=== PATIENT | male | born 1970 | race Caucasian/White ===

== ENCOUNTER → 2023-01-03 02:28 | Outpatient (CLI) | payer MEDICAID, SELFPAY ==
--- NOTE | 2023-01-03 | DI.MRI_ITS ---
Exam(s) MR THORACIC SPINE WO EXAM: MR THORACIC SPINE WO CLINICAL HISTORY: PARESTHESIA,PAIN BOTH UPPER EXT,R20.2,NUMBNESS RT LEG,R20.0,URINARY URGENCY. TECHNIQUE: Multiplanar multisequence MRI of the Thoracic spine was performed. CONTRAST MATERIAL: Noncontrast COMPARISON: No exams were available for comparison FINDINGS: Bones: Mild anterior wedging of the T6, T7 and T8 vertebral bodies, consistent with chronic deformiti es. Small endplate osteophytes projecting anteriorly. Alignment is satisfactory. The signal charact eristics are unremarkable. Cord: The thoracic cord is normal size and signal intensity. No intrinsic cord lesion is present. Discs: No disc herniation or bulge is present. Soft tissues: Normal. IMPRESSION: Mild old compression fractures midthoracic spine. No central canal stenosis, foraminal stenosis or o f disc herniation. Cord appears normal. DATA REPOSITORY:
--- NOTE | 2023-01-03 | DI.MRI_ITS ---
Exam(s) MR LUMBAR SPINE WO EXAM: MR LUMBAR SPINE WO CLINICAL HISTORY: LUMBAR RADICULOPATHY,M54.17,PERIPHERAL NEUROPATHY,G62.9,NUMBNESS RT LEG,R20. TECHNIQUE: Multiplanar multisequence MRI of the Lumbar spine was performed. COMPARISON: CR XR C SPINE 3 VWS or Less from 04/26/2022 FINDINGS: Bones: The last intervertebral disc space is designated the L5/S1 level for the numbering purpose of this ex amination. The vertebral body heights are well maintained. Alignment: Unremarkable. The marrow signal characteristics are unremarkable. Cord: The conus tip ends at the T12 level. It is of normal size and signal intensity. T12-L1: No focal disc herniation is present. No central spinal canal stenosis.No neural foraminal st enosis. L1-2: No focal disc herniation is present. No central spinal canal stenosis.No neural foraminal sten osis. L2-3: No focal disc herniation is present. No central spinal canal stenosis.No neural foraminal ck nosis. L3-4: No focal disc herniation is present. No central spinal canal stenosis.No neural foraminal ck nosis. L4-5: No focal disc herniation is present. No central spinal canal stenosis.No neural foraminal sten osis. L5-S1: At loss of disc height.Partial disc desiccation. Small right paracentral disc protrusion whic h may mildly impinge on nerve roots. No central spinal canal stenosis.No neural foraminal stenosis. The visualized SI joints and sacrum are well maintained. Soft tissues: The paraspinal soft tissues are unremarkable. IMPRESSION: Small right paracentral disc protrusion at L5-S1. No evidence of significant spinal stenosis or neuroforaminal narrowing level. DATA REPOSITORY:
== END ==
PROVIDERS: PCP Registered Nurse; Visit Provider Psychiatry & Neurology Neurology
DX: R20.2 Paresthesia of skin (principal); G56.03 Carpal tunnel syndrome, bilateral upper limbs; M54.17 Radiculopathy, lumbosacral region
CPT/HCPCS: 72146; 72148

== ENCOUNTER 2023-04-03 10:46 | Outpatient (CLI) | payer MEDICAID, SELFPAY ==
[2023-04-03 11:16] VITALS: BP 129/82; PULSE 88; RESP 20; TEMP 36.5; O2SAT 97
--- NOTE | 2023-04-03 12:10 | DI.RAD_ITS ---
Exam(s) XR PAIN CLINIC CERVICAL SP 2V EXAM: XR PAIN CLINIC CERVICAL SP 2V CLINICAL HISTORY: DX: Cervical spondylosis. TECHNIQUE: Fluoroscopy was provided for the referring physician for guidance with performing pain cl inic injection procedure. COMPARISON: No exams were available for comparison FINDINGS: Please see procedure note for details. Fluoro time: 36.6 seconds RADIATION DOSE DELIVERED: marion Castano=3.79 mGy
[2023-04-03 12:11] VITALS: BP 115/83; PULSE 78; RESP 15; O2SAT 95
[2023-04-03] MEDS: Nerve Block Tray 1 EACH MC (12:13)
[2023-04-03] MEDS: Bupivacaine 0.5% Pres-Free 10 ML VIAL IJ (12:14)
[2023-04-03] MEDS: Omnipaque 240 MG/ML 50 ML BTL IJ (12:14)
--- NOTE | 2023-04-03 12:46 | PDOC.PAIN ---
Date of service: 04/03/23 Time of Service: 12:46 Pain Managment Procedure Note Procedure Note Procedure Note: PROCEDURE NOTE RIGHT SIDED CERVICAL MEDIAL BRANCH BLOCKS Date of Service: April 03, 2023 Patient: Zhao Stack Provider: Delfino Christine DO, MPH Zhao Stack has been [facility] to [facility] for cervical medial branch blocks. Pre-operative diagnosis: Cervical Spondylosis without Myelopathy Post-operative diagnosis: Same Pre-procedure pain: VAS= 9/10 COMMENTS: I previously evaluated him in the office. His symptoms remain the same. Zhao? was interviewed and the medical records were reviewed. There were no medical, pharmacologic, radiographic or other structural contraindications to attempting fluoroscopically guided local anesthetic cervical medial branch blocks. Risks and potential side effects were discussed. I also discussed the potential benefit(s) of the procedure with Zhao, and voiced concerns were addressed. After Zhao was completely informed about the procedure, the printed consent form was signed. A standard time-out procedure was performed. Zhao was placed in the lateral decubitus position on the fluoroscopy table with the effected side up. Automated blood pressure cuff and pulse oximeter were applied. The skin entry points for approaching the anatomic target points of the segmental medial branches of Right C3,C4,C5 and C6 were identified with fluoroscopy and marked. The skin at the target site area was thoroughly prepared with Chlorhexadine. The skin was then draped. Next, a 25 gauge 3.5 spinal needle was placed under fluoroscopic guidance down on to the target point (the articular pillar) for each respective segmental medial branch. Position was confirmed in A/P and lateral views. Aspiration revealed no blood or clear fluid. Next, 0.25ml of omnipaque 240 was injected at each level. No contrast following a vascular or neural pattern was visualized under continuous fluoroscopy. Next, 0.25 ml of preservative-free 0.5% bupivicaine was injected at each level. (49 mls of Omnipaque was wasted) There was no unusual discomfort expressed by Zhao. The needles were withdrawn without difficulty. Zhao was observed and was without hemodynamic, neurologic, or allergic reactions.? Fluoroscopic images were digitally archived. Zhao's vital signs were stable throughout the procedure and were as recorded in the doc flowsheet by the nursing staff. Provacative testing using the Modified Oneill's facet loading test- Right side Directly before the block VAS (0-10) = 9/10 5 minutes after the block VAS (0-10) = 0/10 Percentage relief obtained with this diagnostic block 100% Any improved physical functioning directly after the blocks? Able to move his neck in all directions with no pain Follow up plans and appointments were discussed with Zhao. Zhao was instructed to keep careful note of how the usual pain was modified by these injections. Specifically, to keep a pain diary for the next 4 hours using a numeric pain scale of 0-10 and report these results. Post procedure instruction was given as documented in the nursing documentation and having met discharge criteria, the patient was [facility]. Based on the medial branches blocked today, if Zhao has adequate relief and we are able to proceed to radiofrequency ablation, the treatment should result in the denervation of the Right C3-C4, C4-C5, and C5-C6 facet joints. We would expect to denervate a total of 3 facets during the radiofrequency ablation. COMMENTS: No apparent complications. Post-procedure pain: VAS= 0/10. Zhao will call back with 0-4 hour post-procedure pain scores. I personally performed the entire procedure. DELFINO CHRISTINE DO, MPH ABPM&R-subspecialty board certification in Pain Medicine [facility] [facility]
== END 2023-04-03 10:47 | disposition home or self-care (01) ==
LOC: PC 10:47
PROVIDERS: PCP Registered Nurse; Visit Provider Preventive Medicine Occupational Medicine
DX: M47.812 Spondylosis without myelopathy or radiculopathy, cervical region (principal)
CPT/HCPCS: 00123; 64490; 64491; 64492; 72040; J0665; Q9967

== ENCOUNTER 2023-04-24 12:22 | Outpatient (CLI) | payer MEDICAID, SELFPAY ==
--- NOTE | 2023-04-24 06:00 | DI.RAD_ITS ---
Exam(s) XR PAIN CLINIC CERVICAL SP 2V EXAM: XR PAIN CLINIC CERVICAL SP 2V CLINICAL HISTORY: Dx: Cervical Spondylosis TECHNIQUE: 2D and realtime digital imaging was performed. CONTRAST MATERIAL: Refer to procedure report. COMPARISON: No exams were available for comparison FINDINGS: Fluoroscopy was provided for Dr. Christine during the performance of a cervical medial branch block. Ple ase refer to the procedure report for complete details. Ka,r=4.72 mGy IMPRESSION: RADIATION DOSE DELIVERED: 0.0 0.0 0
[2023-04-24 12:32] VITALS: BP 127/93; PULSE 74; RESP 16; TEMP 36.9; O2SAT 96
--- NOTE | 2023-04-24 12:59 | PDOC.PAIN ---
Date of service: 04/24/23 Time of Service: 12:59 Pain Managment Procedure Note Procedure Note Procedure Note: PROCEDURE NOTE RIGHT SIDED CERVICAL MEDIAL BRANCH BLOCKS Date of Service: April 24, 2023 Patient: Zhao Stack Provider: Delfino Christine DO, MPH Zhao Stack has been referred to the [facility] for cervical medial branch blocks. Pre-operative diagnosis: Cervical Spondylosis without Myelopathy Post-operative diagnosis: Same Pre-procedure pain: VAS= 7/10 COMMENTS: He did very well with his CMBBs from 04/03/23 at the right C3-C6 Zhao? was interviewed and the medical records were reviewed. There were no medical, pharmacologic, radiographic or other structural contraindications to attempting fluoroscopically guided local anesthetic cervical medial branch blocks. Risks and potential side effects were discussed. I also discussed the potential benefit(s) of the procedure with Zhao, and voiced concerns were addressed. After Zhao was completely informed about the procedure, the printed consent form was signed. A standard time-out procedure was performed. Zhao was placed in the lateral decubitus position on the fluoroscopy table with the effected side up. Automated blood pressure cuff and pulse oximeter were applied. The skin entry points for approaching the anatomic target points of the segmental medial branches of Right C3,C4,C5 and C6 were identified with fluoroscopy and marked. The skin at the target site area was thoroughly prepared with Chlorhexadine. The skin was then draped. Next, a 25 gauge 3.5 spinal needle was placed under fluoroscopic guidance down on to the target point (the articular pillar) for each respective segmental medial branch. Position was confirmed in A/P and lateral views. Aspiration revealed no blood or clear fluid. Next, 0.25ml of omnipaque 240 was injected at each level. No contrast following a vascular or neural pattern was visualized under continuous fluoroscopy. Next, 0.25 ml of preservative-free 0.5% bupivicaine was injected at each level. (49 mls of Omnipaque was wasted) There was no unusual discomfort expressed by Zhao. The needles were withdrawn without difficulty. Zhao was observed and was without hemodynamic, neurologic, or allergic reactions.? Fluoroscopic images were digitally archived. Zhao's vital signs were stable throughout the procedure and were as recorded in the doc flowsheet by the nursing staff. Provacative testing using the Modified Oneill's facet loading test- Right side Directly before the block VAS (0-10) = 7/10 5 minutes after the block VAS (0-10) = 1/10 Percentage relief obtained with this diagnostic block 90% Any improved physical functioning directly after the blocks? Able to move the neck with little difficulty Follow up plans and appointments were discussed with Zhao. Zhao was instructed to keep careful note of how the usual pain was modified by these injections. Specifically, to keep a pain diary for the next 4 hours using a numeric pain scale of 0-10 and report these results. Post procedure instruction was given as documented in the nursing documentation and having met discharge criteria, the patient was [facility] from the [facility]. Based on the medial branches blocked today, if Zhao has adequate relief and we are able to proceed to radiofrequency ablation, the treatment should result in the denervation of the Right C3-C4, C4-C5, and C5-C6 facet joints. We would expect to denervate a total of 3 facets during the radiofrequency ablation. COMMENTS: No apparent complications. Post-procedure pain: VAS= 1/10. Zhao will call back with 0-4 hour post-procedure pain scores. I personally performed the entire procedure. DELFINO CHRISTINE DO, MPH ABPM&R-subspecialty board certification in Pain Medicine [facility] [facility]
[2023-04-24 13:21] VITALS: BP 111/70; PULSE 67; RESP 15; O2SAT 95
[2023-04-24] MEDS: Nerve Block Tray 1 EACH MC (13:23)
[2023-04-24] MEDS: Bupivacaine 0.5% Pres-Free 10 ML VIAL IJ (13:23)
[2023-04-24] MEDS: Omnipaque 240 MG/ML 50 ML BTL IJ (13:24)
== END 2023-04-24 12:23 | disposition home or self-care (01) ==
LOC: PC 12:23
PROVIDERS: PCP Registered Nurse; Visit Provider Preventive Medicine Occupational Medicine
DX: M47.812 Spondylosis without myelopathy or radiculopathy, cervical region (principal)
CPT/HCPCS: 00123; 64490; 64491; 64492; 72040; J0665; Q9967